=== PATIENT | male | born 1950 | race Caucasian/White ===

== ENCOUNTER → 2017-06-23 | Day surgery (SDC) | payer MEDICARE, OTHER ==
[2017-06-22 10:03] LABS: BASOPHILS % 0.5 % (0.0-1.0); EOSINOPHILS # (AUTO) 0.3 (0.0-0.4); EOSINOPHILS % 2.9 % (0.0-6.0); HEMATOCRIT 39.1 % (38.2-49.6); HEMOGLOBIN 12.6 g/dL (14.0-18.0); LYMPHOCYTES # (AUTO) 1.6 (1.0-3.2); MEAN CORPUSCULAR HEMOGLOBIN 28.8 pg (28-32); MEAN CORPUSCULAR HGB CONC 32.2 g/dL (31-35); MEAN CORPUSCULAR VOLUME 89.3 fL (81-99); MONOCYTES # (AUTO) 0.7 (0.2-0.8); MONOCYTES % 8.4 % (4.4-11.3); NEUTROPHILS # (AUTO) 6.1 (2.1-6.9); NEUTROPHILS % 69.1 % (38.7-80.0); PLATELET COUNT 220 x10e3/uL (140-360); RED BLOOD COUNT 4.38 x10e6/uL (4.3-5.7)
[2017-06-22 10:19] LABS: ALBUMIN 3.7 g/dL (3.5-5.0); ALBUMIN/GLOBULIN RATIO 0.9 (0.8-2.0); ANION GAP 18.4 mmol/L (8-16); CALCIUM 9.9 mg/dL (8.4-10.2); CREATININE, SERUM 1.31 mg/dL (0.72-1.25); POTASSIUM 4.4 mmol/L (3.5-5.1)
[~2017-06-23] VITALS: Ht 172.7 cm; Wt 125.2 kg
[~2017-06-23] MED LIST: ALDACTONE25 MG PO; AMLODIPINE BESY10 MG PO; AMLODIPINE BESYL5 MG PO; ASPIRIN81 MG PO; BENICAR40 MG PO; BYSTOLIC2.5 MG PO; DIGOXIN125 MCG PO; FENTANYL CITRATE/PF 100MCG/2 ML INJ ONE; FUROSEMIDE20 MG; HEPARIN SOD/SOD CHLORIDE 2,000 ML ONE; HYDRALAZINE HCL10 MG PO; IOPAMIDOL 370 MG/ML 200 ML INFUS..BTL INJ ONE; KLOR-CON 88 MEQ PO; LANTUS 3ML100 UNITS/ SQ; LANTUS100 UNITS/ SQ; LASIX40 MG PO; LIDOCAINE HCL 2% LOCAL 20 ML VIAL ONE; METOPROLOL TART50 MG PO; MIDAZOLAM HCL 2 MG/2 ML VIAL ONE; NIFEDICAL XL60 MG PO; PRAVASTATIN SOD40 MG PO; SODIUM CHLORIDE 0.9% 1000ML 1,000 ML ONE; VERAPAMIL HCL 2.5 MG/ML 2 ML VIAL ONE; WARFARIN SODIU7.5 MG PO; WARFARIN SODIUM2 MG PO; eliquis PO
[2017-06-23 07:08] VITALS: BP 161/67
--- NOTE | 2017-06-23 08:28 | Operative Report ---
DATE OF PROCEDURE: June 23, 2017 INDICATIONS: Coronary artery disease and abnormal stress test with unstable angina. PROCEDURES PERFORMED 1. Left heart catheterization. 2. Selective coronary angiography. 3. Left ventriculography. 4. Deployment of right wrist TR band. COMPLICATIONS: None. RECOMMENDATIONS: Medical therapy versus coronary artery bypass surgery. Access was obtained in the right radial artery. A 5-Upper Sorbian sheath was placed. The ultrasound guidance was used. The left main was short. Left anterior descending artery was diffusely diseased proximal 50% to 70% stenosis. Distal LAD 80% stenosis with a 2-mm apical LAD. Circumflex had moderate disease with large 2nd obtuse marginal branch. However, the distal circumflex was occluded. Right coronary artery diffuse disease, mainly 20% to 30% stenosis. This is a dominant. Distal right coronary artery is completely occluded. The right posterior descending and posterolateral arteries filled via left coronary system. LV ejection fraction 50%. LV end-diastolic pressure of 12 mmHg across the aortic valve on pullback. TR band was applied. Patient discharged home same day. Job#: [id number] [place]
--- NOTE | 2017-06-23 08:51 | Progress Note ---
DATE: No Dictation 00:22 seconds. Job#: [id number]
[2017-06-23 09:51] VITALS: BP 136/60
== END | disposition home or self-care (01) ==
LOC: CATH LAB 07:54
PROVIDERS: ATTEND Internal Medicine Interventional Cardiology
DX: I25.110 Atherosclerotic heart disease of native coronary artery with unstable angina pectoris (principal); I25.82 Chronic total occlusion of coronary artery; R94.39 Abnormal result of other cardiovascular function study; I11.0 Hypertensive heart disease with heart failure; I50.9 Heart failure, unspecified; E11.9 Type 2 diabetes mellitus without complications; Z01.812 Encounter for preprocedural laboratory examination; Z79.4 Long term (current) use of insulin; Z79.82 Long term (current) use of aspirin; Z79.02 Long term (current) use of antithrombotics/antiplatelets; Z68.36 Body mass index [BMI] 36.0-36.9, adult; Z82.49 Family history of ischemic heart disease and other diseases of the circulatory system
CPT/HCPCS: 36415; 77002; 80053; 85025; 93458; C1769; C1887; C1894; J2001; J2250; J7030; Q9967; 36140; 93452

== ENCOUNTER → 2020-06-29 | Day surgery (SDC) | payer MEDICARE, OTHER ==
[2020-06-24 11:47] LABS: BASOPHILS % 0.4 % (0.0-1.0); EOSINOPHILS # (AUTO) 0.5 (0.0-0.4); EOSINOPHILS % 4.8 % (0.0-6.0); LYMPHOCYTES # (AUTO) 1.9 (1.0-3.2); LYMPHOCYTES % 19.1 % (18.0-39.1); MEAN CORPUSCULAR HGB CONC 31.4 g/dL (31-35); MEAN CORPUSCULAR VOLUME 85.8 fL (81-99); MONOCYTES # (AUTO) 0.9 (0.2-0.8); NEUTROPHILS # (AUTO) 6.6 (2.1-6.9); NEUTROPHILS % 66.3 % (38.7-80.0); PLATELET COUNT 241 x10e3/uL (140-360); RED BLOOD COUNT 4.08 x10e6/uL (4.3-5.7); RED CELL DISTRIBUTION WIDTH 15.3 % (11.7-14.4)
[2020-06-24 14:05] LABS: ALBUMIN 3.8 g/dL (3.5-5.0); ANION GAP 13.2 mmol/L (8-16); CALCIUM 9.2 mg/dL (8.4-10.2); CREATININE, SERUM 1.3 mg/dL (0.72-1.25); POTASSIUM 4.2 mmol/L (3.5-5.1)
[~2020-06-29] VITALS: Ht 175.3 cm; Wt 111.1 kg
[~2020-06-29] MED LIST changes: +ALPRAZOLAM 0.5 MG TAB ONE; +ASPIRIN EC81 MG PO; +DIPHENHYDRAMINE HCL 25 MG CAP ONE; +ELIQUIS5 MG PO; +LASIX80 MG PO; +METOPROLOL SUCC25 MG PO; +NITROGLYCERIN/D5W 200 MCG/ML 250 ML ONE; -VERAPAMIL HCL 2.5 MG/ML 2 ML VIAL ONE
[2020-06-29 07:01] VITALS: BP 138/70
[2020-06-29 08:15] VITALS: BP 107/60
[2020-06-29 08:30] VITALS: BP 104/50
[2020-06-29 08:44] VITALS: BP 97/37
[2020-06-29 09:00] VITALS: BP 122/59
== END | disposition home or self-care (01) ==
LOC: CATH LAB 06:19
PROVIDERS: ATTEND Internal Medicine Interventional Cardiology
DX: I25.118 Atherosclerotic heart disease of native coronary artery with other forms of angina pectoris (principal); I82.493 Acute embolism and thrombosis of other specified deep vein of lower extremity, bilateral; R94.39 Abnormal result of other cardiovascular function study; I73.9 Peripheral vascular disease, unspecified; Z13.6 Encounter for screening for cardiovascular disorders; I10 Essential (primary) hypertension; Z01.812 Encounter for preprocedural laboratory examination; Z20.828 Contact with and (suspected) exposure to other viral communicable diseases; Z79.82 Long term (current) use of aspirin; Z79.02 Long term (current) use of antithrombotics/antiplatelets; Z68.37 Body mass index [BMI] 37.0-37.9, adult; Z82.49 Family history of ischemic heart disease and other diseases of the circulatory system
CPT/HCPCS: 36415; 80053; 85025; 93458; C1760; C1769; J2001; J2250; J3010; J7030; Q9967; U0002; 99152; 99153

== ENCOUNTER 2021-12-22 12:20 | Emergency (ER) | payer MEDICARE, OTHER ==
[~2021-12-22] VITALS: Ht 175.3 cm; Wt 111.1 kg
[~2021-12-22 12:20] MED LIST changes: -ALPRAZOLAM 0.5 MG TAB ONE; -DIPHENHYDRAMINE HCL 25 MG CAP ONE; -FENTANYL CITRATE/PF 100MCG/2 ML INJ ONE; -HEPARIN SOD/SOD CHLORIDE 2,000 ML ONE; -IOPAMIDOL 370 MG/ML 200 ML INFUS..BTL INJ ONE; -LIDOCAINE HCL 2% LOCAL 20 ML VIAL ONE; -MIDAZOLAM HCL 2 MG/2 ML VIAL ONE; -NITROGLYCERIN/D5W 200 MCG/ML 250 ML ONE; -SODIUM CHLORIDE 0.9% 1000ML 1,000 ML ONE
[2021-12-22 13:02] LABS: BASOPHILS % 0.3 % (0.0-1.0); EOSINOPHILS # (AUTO) 0.2 (0.0-0.4); EOSINOPHILS % 2.3 % (0.0-6.0); HEMATOCRIT 25.8 % (38.2-49.6); HEMOGLOBIN 7.2 g/dL (14.0-18.0); LYMPHOCYTES # (AUTO) 1.7 (1.0-3.2); LYMPHOCYTES % 16.9 % (18.0-39.1); MEAN CORPUSCULAR HEMOGLOBIN 20.2 pg (28-32); MEAN CORPUSCULAR HGB CONC 27.9 g/dL (31-35); MEAN CORPUSCULAR VOLUME 72.3 fL (81-99); MONOCYTES # (AUTO) 0.6 (0.2-0.8); MONOCYTES % 5.6 % (4.4-11.3); NEUTROPHILS # (AUTO) 7.4 (2.1-6.9); NEUTROPHILS % 74.4 % (38.7-80.0); PLATELET COUNT 333 x10e3/uL (140-360); RED BLOOD COUNT 3.57 x10e6/uL (4.3-5.7); RED CELL DISTRIBUTION WIDTH 18.8 % (11.7-14.4)
[2021-12-22 13:10] LABS: INR 1.05; PROTHROMBIN TIME 14.7 seconds (11.9-14.5)
[2021-12-22 13:14] LABS: ALBUMIN 2.5 g/dL (3.5-5.0); ALBUMIN/GLOBULIN RATIO 0.6 (0.8-2.0); ALKALINE PHOSPHATASE 68 IU/L (40-150); ANION GAP 12.5 mmol/L (8-16); BLOOD UREA NITROGEN 14 mg/dL (7-26); BUN/CREATININE RATIO 11 (6-25); CALCIUM 8.1 mg/dL (8.4-10.2); CARBON DIOXIDE 26 mmol/L (22-29); CHLORIDE 101 mmol/L (98-107); CREATININE, SERUM 1.31 mg/dL (0.72-1.25); GLUCOSE 144 mg/dL (74-118); POTASSIUM 3.5 mmol/L (3.5-5.1); SODIUM 136 mmol/L (136-145)
[2021-12-22 13:15] LABS: ALANINE AMINOTRANSFERASE < 6 IU/L (0-55)
== END 2021-12-22 14:30 | disposition home or self-care (01) ==
LOC: ER 12:25
DX: D64.9 Anemia, unspecified (principal); E11.65 Type 2 diabetes mellitus with hyperglycemia; I10 Essential (primary) hypertension; I50.9 Heart failure, unspecified
CPT/HCPCS: 36415; 80053; 83880; 84484; 85025; 85610; 86850; 86900; 99283

== ENCOUNTER 2022-01-03 15:18 | Observation (INO) | payer MEDICARE ==
[~2022-01-03] VITALS: Ht 175.3 cm; Wt 102.1 kg
[~2022-01-03 15:18] MED LIST changes: +CYANOCOBALAMIN PO; +D3 PO; +IRON PO; +ZINC PO
[2022-01-03] MEDS ORDERED: SODIUM CHLORIDE 0.9% 250ML 250 ML IV ONE ×2 (15:45→16:00)
[2022-01-03] MEDS ORDERED: SODIUM CHLORIDE FLUSH 10 ML SYR INJ PRN (16:15)
[2022-01-03 18:32] VITALS: BP 127/50
[2022-01-03 19:34] VITALS: BP 146/63
[2022-01-03 19:50] VITALS: BP 146/63
[2022-01-03 20:00] VITALS: BP 146/63
[2022-01-03] MEDS ORDERED: FUROSEMIDE INJ 10 MG/ML 2 ML VIAL IV PRN (20:00)
[2022-01-03] MEDS ORDERED: FUROSEMIDE INJ 10 MG/ML 2 ML VIAL IV ONE (20:00)
[2022-01-03] MEDS ORDERED: SODIUM CHLORIDE 0.9% 250ML 500 ML ONE (20:14)
[2022-01-03 21:28] LABS: FERRITIN 68.02 ng/mL (21.81-274.66); THYROID STIMULATING HORMONE 1.618 uIU/mL (0.350-4.940)
[2022-01-04] VITALS (8 sets, daily range): BP systolic 117–150; BP diastolic 56–74
[2022-01-04] MEDS ORDERED: FUROSEMIDE INJ 10 MG/ML 2 ML VIAL ONE ×2 (00:04→03:50)
[2022-01-04] MEDS ORDERED: BISACODYL 5 MG TAB EC PO ONE ×2 (05:00→07:00)
[2022-01-04 06:01] LABS: BASOPHILS % 0.2 % (0.0-1.0); EOSINOPHILS # (AUTO) 0.2 (0.0-0.4); EOSINOPHILS % 1.2 % (0.0-6.0); HEMATOCRIT 31.5 % (38.2-49.6); HEMOGLOBIN 9.3 g/dL (14.0-18.0); LYMPHOCYTES # (AUTO) 2.1 (1.0-3.2); LYMPHOCYTES % 16.3 % (18.0-39.1); MEAN CORPUSCULAR HEMOGLOBIN 21.8 pg (28-32); MEAN CORPUSCULAR HGB CONC 29.5 g/dL (31-35); MEAN CORPUSCULAR VOLUME 73.9 fL (81-99); MONOCYTES # (AUTO) 0.9 (0.2-0.8); MONOCYTES % 7.3 % (4.4-11.3); NEUTROPHILS # (AUTO) 9.5 (2.1-6.9); NEUTROPHILS % 74.2 % (38.7-80.0); PLATELET COUNT 378 x10e3/uL (140-360); RED BLOOD COUNT 4.26 x10e6/uL (4.3-5.7); RED CELL DISTRIBUTION WIDTH 20.7 % (11.7-14.4)
[2022-01-04 06:19] LABS: ANION GAP 14.9 mmol/L (8-16); CALCIUM 8.7 mg/dL (8.4-10.2); CREATININE, SERUM 0.97 mg/dL (0.72-1.25); POTASSIUM 3.9 mmol/L (3.5-5.1)
[2022-01-04 08:45] LABS: ANISOCYTOSIS MODERATE; HYPOCHROMASIA MODERATE; MICROCYTOSIS MODERATE; OVALOCYTES FEW; PLATELET ESTIMATE ADEQUATE; PLATELET MORPHOLOGY COMMENT NORMAL; RBC MORPHOLOGY COMMENT ABNORMAL
[2022-01-04] MEDS: IRON SUCROSE 100 MG in SODIUM CHLORIDE 0.9% 100 ML 100 ML IV SCH (08:56)
[2022-01-04] MEDS ORDERED: CITRATE OF MAGNESIA 300ML BOTTLE PO ONE ×2 (09:00→10:00)
[2022-01-04] MEDS ORDERED: LIDOCAINE HCL 2% LOCAL INJ 5 ML SDV VIAL INJ ONE (11:38)
[2022-01-04] MEDS ORDERED: PROPOFOL IV EMULSION 10 MG/ML 20 ML VIAL ONE (11:38)
[2022-01-04] MEDS ORDERED: HYOSCYAMINE SULFATE 0.5 MG/ML INJ ONE (11:38)
[2022-01-04] MEDS ORDERED: MIDAZOLAM HCL 2 MG/2 ML VIAL ONE (13:13)
[2022-01-04] MEDS ORDERED: FENTANYL CITRATE/PF 100MCG/2 ML INJ ONE (13:13)
[2022-01-04] MEDS ORDERED: DIGOXIN125 MCG PO (15:30)
[2022-01-04] MEDS ORDERED: ATORVASTATIN CA20 MG PO (15:30)
[2022-01-04] MEDS ORDERED: HYDRALAZINE HCL 10 MG TAB PO SCH (17:00)
[2022-01-04] MEDS: APIXABAN 5 MG TABLET PO SCH (17:00)
[2022-01-04] MEDS: SPIRONOLACTONE 25 MG TAB PO SCH (18:26)
[2022-01-04] MEDS ORDERED: ATORVASTATIN 40 MG TAB PO SCH (21:00)
[2022-01-05] VITALS: BP 117/64
[2022-01-05 04:31] VITALS: BP 129/74
[2022-01-05 06:13] LABS: BASOPHILS % 0.2 % (0.0-1.0); EOSINOPHILS % 0.3 % (0.0-6.0); HEMATOCRIT 33.9 % (38.2-49.6); HEMOGLOBIN 9.8 g/dL (14.0-18.0); LYMPHOCYTES # (AUTO) 1.2 (1.0-3.2); LYMPHOCYTES % 7.6 % (18.0-39.1); MEAN CORPUSCULAR HGB CONC 28.9 g/dL (31-35); MEAN CORPUSCULAR VOLUME 76.2 fL (81-99); MONOCYTES # (AUTO) 0.8 (0.2-0.8); MONOCYTES % 5.1 % (4.4-11.3); NEUTROPHILS # (AUTO) 13.2 (2.1-6.9); PLATELET COUNT 351 x10e3/uL (140-360); RED BLOOD COUNT 4.45 x10e6/uL (4.3-5.7); RED CELL DISTRIBUTION WIDTH 20.8 % (11.7-14.4)
[2022-01-05 06:42] LABS: ANION GAP 14.8 mmol/L (8-16); CALCIUM 8.8 mg/dL (8.4-10.2); CREATININE, SERUM 1.08 mg/dL (0.72-1.25); POTASSIUM 3.8 mmol/L (3.5-5.1)
[2022-01-05 08:16] VITALS: BP 102/68
[2022-01-05 08:20] VITALS: BP 102/68
[2022-01-05] MEDS: APIXABAN 5 MG TABLET PO SCH (08:23)
[2022-01-05] MEDS: SPIRONOLACTONE 25 MG TAB PO SCH (08:23)
[2022-01-05] MEDS ORDERED: AMLODIPINE BESYLATE 10 MG TAB PO SCH (09:00)
[2022-01-05] MEDS ORDERED: INSULIN GLARGINE 100 UNITS/ML VIAL SQ SCH (09:00)
[2022-01-05] MEDS ORDERED: ZINC PO SCH (09:00)
[2022-01-05] MEDS ORDERED: NON-FORMULARY MEDICATION (Olmesartan Medoxomil (Benicar) 40 MG) PO SCH (09:00)
[2022-01-05] MEDS ORDERED: NON-FORMULARY MEDICATION ([Iron] 65 MG) PO SCH (09:00)
[2022-01-05] MEDS ORDERED: CYANOCOBALAMIN PO SCH (09:00)
[2022-01-05] MEDS ORDERED: DIGOXIN 0.125 MG TAB PO SCH (09:00)
[2022-01-05] MEDS ORDERED: D3 PO SCH (09:00)
[2022-01-05] MEDS ORDERED: FERROUS SULFATE 325 MG TAB PO SCH (09:00)
[2022-01-05] MEDS ORDERED: NON-FORMULARY MEDICATION (Pravastatin Sodium 40 MG) PO SCH (09:00)
[2022-01-05] MEDS ORDERED: METOPROLOL SUCCINATE 25 MG TAB XL PO SCH (09:00)
[2022-01-05] MEDS ORDERED: ASPIRIN 81 MG ENTERIC COATED PO SCH (09:00)
[2022-01-05] MEDS ORDERED: OLMESARTAN 20 MG TAB PO SCH (09:00)
[2022-01-05] MEDS ORDERED: PRAVASTATIN 20 MG TAB PO SCH (09:00)
[2022-01-05] MEDS ORDERED: FUROSEMIDE 40 MG TAB PO SCH (09:00)
[2022-01-05] MEDS ORDERED: CHOLECALCIFEROL 1,000 UNIT TAB PO SCH (09:00)
[2022-01-05] MEDS: IRON SUCROSE 100 MG in SODIUM CHLORIDE 0.9% 100 ML 100 ML IV SCH (09:11)
[2022-01-05 09:18] LABS: BAND NEUTROPHILS % (MANUAL) 2 %; LYMPHOCYTES % (MANUAL) 7 % (19-48); MONOCYTES % (MANUAL) 4 % (3.4-9.0); NEUTROPHILS % (MANUAL) 87 % (40-74)
[2022-01-05 09:19] LABS: ANISOCYTOSIS MODERATE; HYPOCHROMASIA MODERATE; MICROCYTOSIS MODERATE; PLATELET ESTIMATE ADEQUATE; PLATELET MORPHOLOGY COMMENT NORMAL; RBC MORPHOLOGY COMMENT ABNORMAL
[2022-01-05 10:46] VITALS: BP 121/59
== END 2022-01-05 15:03 | disposition home or self-care (01) ==
LOC: ER 15:26 → INTOOBSV 16:10 → ERHOLD 16:10 → MED/SURG 17:29
DX: D12.3 Benign neoplasm of transverse colon (principal); D12.2 Benign neoplasm of ascending colon; D12.0 Benign neoplasm of cecum; K29.50 Unspecified chronic gastritis without bleeding; K57.30 Diverticulosis of large intestine without perforation or abscess without bleeding; K64.8 Other hemorrhoids; K20.90 Esophagitis, unspecified without bleeding; K44.9 Diaphragmatic hernia without obstruction or gangrene; D64.9 Anemia, unspecified; E66.9 Obesity, unspecified; Z68.33 Body mass index [BMI] 33.0-33.9, adult; I11.0 Hypertensive heart disease with heart failure; E11.9 Type 2 diabetes mellitus without complications; I50.22 Chronic systolic (congestive) heart failure; B96.81 Helicobacter pylori [H. pylori] as the cause of diseases classified elsewhere; Z20.822 Contact with and (suspected) exposure to COVID-19; Z79.82 Long term (current) use of aspirin; Z79.4 Long term (current) use of insulin
CPT/HCPCS: 36415 ×3; 36430; 43239; 45380; 45385; 80048 ×2; 82607; 82728; 82746; 82948 ×3; 83540; 84443; 84466; 85025 ×2; 86850; 86900; 86920; 88305; 88342; 99284; G0378 ×3; J1756 ×2; J1940; J1980; J2001; J2250; J2704; J3010; J7050; P9016 ×2; U0002; 45378; 88312; J1815

== ENCOUNTER 2022-02-07 10:31 | Inpatient (IN) | payer MEDICARE ==
[2022-02-02 13:34] LABS: BASOPHILS % 0.3 % (0.0-1.0); EOSINOPHILS # (AUTO) 0.1 (0.0-0.4); EOSINOPHILS % 1.3 % (0.0-6.0); HEMATOCRIT 30.8 % (38.2-49.6); HEMOGLOBIN 9.4 g/dL (14.0-18.0); LYMPHOCYTES # (AUTO) 1.4 (1.0-3.2); LYMPHOCYTES % 13.2 % (18.0-39.1); MEAN CORPUSCULAR HEMOGLOBIN 23.7 pg (28-32); MEAN CORPUSCULAR HGB CONC 30.5 g/dL (31-35); MEAN CORPUSCULAR VOLUME 77.8 fL (81-99); MONOCYTES # (AUTO) 0.7 (0.2-0.8); MONOCYTES % 6.6 % (4.4-11.3); NEUTROPHILS # (AUTO) 8.1 (2.1-6.9); NEUTROPHILS % 78.1 % (38.7-80.0); PLATELET COUNT 266 x10e3/uL (140-360); RED BLOOD COUNT 3.96 x10e6/uL (4.3-5.7); RED CELL DISTRIBUTION WIDTH 23.8 % (11.7-14.4)
[~2022-02-07] VITALS: Ht 175.3 cm; Wt 100.8 kg
[2022-02-07] VITALS (7 sets, daily range): BP systolic 138–157; BP diastolic 84–104
[~2022-02-07 10:31] MED LIST changes: +ATORVASTATIN CA20 MG PO; +FEROSUL325 MG PO
[2022-02-07] MEDS ORDERED: SEVOFLURANE INHAL SOLN 250 ML PEN BTL ONE (11:53)
[2022-02-07] MEDS ORDERED: DEXAMETHASONE SOD PHOS INJ 4 MG/ML SDV ONE (11:53)
[2022-02-07] MEDS ORDERED: LIDOCAINE HCL 2% LOCAL INJ 5 ML SDV VIAL INJ ONE (11:53)
[2022-02-07] MEDS ORDERED: PROPOFOL IV EMULSION 10 MG/ML 20 ML VIAL ONE (11:53)
[2022-02-07] MEDS ORDERED: POVIDONE IODINE 0.05% 0.05 % ML PO ONE (11:53)
[2022-02-07] MEDS ORDERED: ROCURONIUM BROMIDE 10 MG/ML 5ML VIAL IV ONE (11:53)
[2022-02-07] MEDS ORDERED: ONDANSETRON HCL INJ 2MG/ML 2ML 2 MG/ML VIAL ONE (11:53)
[2022-02-07] MEDS ORDERED: MIDAZOLAM HCL 2 MG/2 ML VIAL ONE (12:15)
[2022-02-07] MEDS ORDERED: FENTANYL CITRATE/PF 100MCG/2 ML INJ ONE (12:15)
[2022-02-07] MEDS ORDERED: HEPARIN SOD/SOD CHLORIDE 1,000 ML ONE (14:05)
[2022-02-07] MEDS ORDERED: ACETAMINOPHEN 1000 MG/100 ML 100 ML IV ONE (15:17)
[2022-02-07] MEDS ORDERED: ACETAMINOPHEN 1000 MG/100 ML IV PRN (15:30)
[2022-02-07] MEDS ORDERED: HYDROMORPHONE 1MG/1ML INJ IV PRN (15:30)
[2022-02-07] MEDS ORDERED: ONDANSETRON HCL INJ 2MG/ML 2ML 2 MG/ML VIAL IV PRN (15:30)
[2022-02-07] MEDS: METOPROLOL SUCCINATE 25 MG TAB XL PO SCH (17:59)
[2022-02-07] MEDS: SODIUM CHLORIDE 0.9% 1000ML 1,000 ML IV SCH (17:59)
[2022-02-07] MEDS: NITROGLYCERIN 2% OINT 1 GM PKT TOP SCH ×2 (17:59→23:40)
[2022-02-07] MEDS: INSULIN REGULAR, HUMAN 100 UNIT/1 ML SQ SCH ×2 (18:00→23:49)
[2022-02-08] VITALS (17 sets, daily range): BP systolic 130–162; BP diastolic 67–95
[2022-02-08] MEDS: SODIUM CHLORIDE 0.9% 1000ML 1,000 ML IV SCH ×3 (03:10→23:51)
[2022-02-08] MEDS: INSULIN REGULAR, HUMAN 100 UNIT/1 ML SQ SCH ×3 (06:00→18:00)
[2022-02-08] MEDS: NITROGLYCERIN 2% OINT 1 GM PKT TOP SCH ×4 (06:06→23:55)
[2022-02-08 06:18] LABS: HEMATOCRIT 29.9 % (38.2-49.6); HEMOGLOBIN 9.1 g/dL (14.0-18.0); MEAN CORPUSCULAR HEMOGLOBIN 24.3 pg (28-32); MEAN CORPUSCULAR HGB CONC 30.4 g/dL (31-35); MEAN CORPUSCULAR VOLUME 79.7 fL (81-99); NEUTROPHILS % 89.7 % (38.7-80.0); PLATELET COUNT 237 x10e3/uL (140-360); RED BLOOD COUNT 3.75 x10e6/uL (4.3-5.7); RED CELL DISTRIBUTION WIDTH 22.5 % (11.7-14.4)
[2022-02-08 06:19] LABS: LYMPHOCYTES # (AUTO) 0.5 (1.0-3.2); LYMPHOCYTES % 5.6 % (18.0-39.1); MONOCYTES # (AUTO) 0.4 (0.2-0.8); MONOCYTES % 4.4 % (4.4-11.3); NEUTROPHILS # (AUTO) 8.7 (2.1-6.9)
[2022-02-08 06:47] LABS: ANION GAP 14.8 mmol/L (8-16); CALCIUM 7.6 mg/dL (8.4-10.2); CREATININE, SERUM 1.14 mg/dL (0.72-1.25); POTASSIUM 4.8 mmol/L (3.5-5.1)
[2022-02-08] MEDS: METOPROLOL SUCCINATE 25 MG TAB XL PO SCH ×3 (09:00→19:46)
[2022-02-08] MEDS: FUROSEMIDE INJ 10 MG/ML 2 ML VIAL IV SCH ×2 (12:38→18:26)
[2022-02-08] MEDS: DIGOXIN INJ 0.25 MG/ML 2 ML AMP IV SCH (12:38)
[2022-02-09] VITALS (7 sets, daily range): BP systolic 126–165; BP diastolic 67–85
[2022-02-09] MEDS: INSULIN REGULAR, HUMAN 100 UNIT/1 ML SQ SCH ×4 (05:56→18:00)
[2022-02-09] MEDS: NITROGLYCERIN 2% OINT 1 GM PKT TOP SCH ×3 (06:09→17:32)
[2022-02-09 07:32] LABS: BASOPHILS % 0.1 % (0.0-1.0); HEMATOCRIT 31.2 % (38.2-49.6); HEMOGLOBIN 9.5 g/dL (14.0-18.0); MEAN CORPUSCULAR HEMOGLOBIN 24.4 pg (28-32); MEAN CORPUSCULAR HGB CONC 30.4 g/dL (31-35); MONOCYTES # (AUTO) 1.1 (0.2-0.8); MONOCYTES % 8.4 % (4.4-11.3); NEUTROPHILS # (AUTO) 10.7 (2.1-6.9); PLATELET COUNT 254 x10e3/uL (140-360); RED CELL DISTRIBUTION WIDTH 23.2 % (11.7-14.4)
[2022-02-09 07:56] LABS: ANION GAP 12.2 mmol/L (8-16); CALCIUM 8.2 mg/dL (8.4-10.2); CREATININE, SERUM 1.05 mg/dL (0.72-1.25); POTASSIUM 4.2 mmol/L (3.5-5.1)
[2022-02-09] MEDS: SODIUM CHLORIDE 0.9% 1000ML 1,000 ML IV SCH (10:19)
[2022-02-09] MEDS: METOPROLOL SUCCINATE 25 MG TAB XL PO SCH ×2 (10:20→17:30)
[2022-02-09] MEDS: FUROSEMIDE INJ 10 MG/ML 2 ML VIAL IV SCH ×2 (10:26→17:29)
[2022-02-09] MEDS: DIGOXIN INJ 0.25 MG/ML 2 ML AMP IV SCH (10:26)
[2022-02-10] VITALS (9 sets, daily range): BP systolic 142–164; BP diastolic 77–83
[2022-02-10] MEDS: NITROGLYCERIN 2% OINT 1 GM PKT TOP SCH ×4 (00:28→17:15)
[2022-02-10] MEDS: SODIUM CHLORIDE 0.9% 1000ML 1,000 ML IV SCH ×2 (03:34→16:50)
[2022-02-10] MEDS: INSULIN REGULAR, HUMAN 100 UNIT/1 ML SQ SCH ×4 (05:51→17:11)
[2022-02-10 09:24] LABS: BASOPHILS % 0.2 % (0.0-1.0); EOSINOPHILS # (AUTO) 0.1 (0.0-0.4); EOSINOPHILS % 0.6 % (0.0-6.0); HEMATOCRIT 30.9 % (38.2-49.6); HEMOGLOBIN 9.4 g/dL (14.0-18.0); LYMPHOCYTES # (AUTO) 1.5 (1.0-3.2); LYMPHOCYTES % 13.4 % (18.0-39.1); MEAN CORPUSCULAR HEMOGLOBIN 24.2 pg (28-32); MEAN CORPUSCULAR HGB CONC 30.4 g/dL (31-35); MEAN CORPUSCULAR VOLUME 79.6 fL (81-99); MONOCYTES # (AUTO) 0.9 (0.2-0.8); NEUTROPHILS # (AUTO) 8.4 (2.1-6.9); NEUTROPHILS % 77.2 % (38.7-80.0); PLATELET COUNT 270 x10e3/uL (140-360); RED BLOOD COUNT 3.88 x10e6/uL (4.3-5.7); RED CELL DISTRIBUTION WIDTH 22.8 % (11.7-14.4)
[2022-02-10] MEDS: DIGOXIN INJ 0.25 MG/ML 2 ML AMP IV SCH (09:24)
[2022-02-10] MEDS: METOPROLOL SUCCINATE 25 MG TAB XL PO SCH ×2 (09:26→17:10)
[2022-02-10] MEDS: FUROSEMIDE INJ 10 MG/ML 4 ML VIAL IV SCH ×2 (09:26→17:10)
[2022-02-10 09:57] LABS: ANION GAP 14.7 mmol/L (8-16); CALCIUM 8.2 mg/dL (8.4-10.2); CREATININE, SERUM 0.86 mg/dL (0.72-1.25); POTASSIUM 3.7 mmol/L (3.5-5.1)
[2022-02-10] MEDS ORDERED: ATORVASTATIN 40 MG TAB PO SCH (21:00)
[2022-02-10] MEDS: SPIRONOLACTONE 25 MG TAB PO SCH (21:05)
[2022-02-11] MEDS: NITROGLYCERIN 2% OINT 1 GM PKT TOP SCH ×4 (00:27→17:01)
[2022-02-11 05:45] VITALS: BP 128/79
[2022-02-11] MEDS: INSULIN REGULAR, HUMAN 100 UNIT/1 ML SQ SCH ×3 (05:51→12:00)
[2022-02-11 07:39] VITALS: BP 144/84
[2022-02-11 08:00] VITALS: BP 144/84
[2022-02-11] MEDS: FUROSEMIDE INJ 10 MG/ML 4 ML VIAL IV SCH ×2 (08:57→16:54)
[2022-02-11] MEDS: DIGOXIN INJ 0.25 MG/ML 2 ML AMP IV SCH (08:57)
[2022-02-11] MEDS: SPIRONOLACTONE 25 MG TAB PO SCH ×2 (08:58→16:55)
[2022-02-11] MEDS: METOPROLOL SUCCINATE 25 MG TAB XL PO SCH ×2 (08:58→16:55)
[2022-02-11] MEDS ORDERED: OLMESARTAN 20 MG TAB PO SCH (09:00)
[2022-02-11 11:08] VITALS: BP 147/72
[2022-02-11] MEDS: SODIUM CHLORIDE 0.9% 1000ML 1,000 ML IV SCH (11:52)
[2022-02-11 15:07] VITALS: BP 139/96
[2022-02-11] MEDS ORDERED: ONDANSETRON HCL 4 MG ORAL DISINTEGRATING TAB PO PRN (17:45)
[2022-02-12] MEDS ORDERED: PANTOPRAZOLE SOD 40 MG TABEC PO SCH (07:30)
[2022-02-12] MEDS ORDERED: FUROSEMIDE 40 MG TAB PO SCH (09:00)
== END 2022-02-11 18:18 | disposition home or self-care (01) | DRG 330 ==
LOC: OR 10:31 → PACU V 15:29 → ICU 17:16 → MED/SURG 02-08 21:04
PROVIDERS: ADMIT Surgery; ATTEND Surgery
PROC: 0DTF0ZZ Resection of Right Large Intestine, Open Approach (ICD-10-PCS; principal; 2022-02-07 13:41)
DX: D12.3 Benign neoplasm of transverse colon (principal); I50.22 Chronic systolic (congestive) heart failure; D12.0 Benign neoplasm of cecum; I48.91 Unspecified atrial fibrillation; I11.0 Hypertensive heart disease with heart failure; I25.10 Atherosclerotic heart disease of native coronary artery without angina pectoris; E78.5 Hyperlipidemia, unspecified; E11.9 Type 2 diabetes mellitus without complications; Z20.822 Contact with and (suspected) exposure to COVID-19
CPT/HCPCS: 0223U; 36415; 71046; 80048; 82948; 83880; 85025; 88307; 88309; 94799; 96361; 99251; J0694; J1100; J1160; J1170; J1817; J1940; J2001; J2250; J2405; J3010; J7030

== ENCOUNTER → 2022-03-01 | Day surgery (SDC) | payer MEDICARE ==
[2022-02-28 13:29] LABS: BASOPHILS % 0.3 % (0.0-1.0); EOSINOPHILS # (AUTO) 0.1 (0.0-0.4); EOSINOPHILS % 0.8 % (0.0-6.0); HEMATOCRIT 32.6 % (38.2-49.6); LYMPHOCYTES # (AUTO) 1.5 (1.0-3.2); LYMPHOCYTES % 13.2 % (18.0-39.1); MEAN CORPUSCULAR HEMOGLOBIN 24.7 pg (28-32); MEAN CORPUSCULAR HGB CONC 30.7 g/dL (31-35); MEAN CORPUSCULAR VOLUME 80.5 fL (81-99); MONOCYTES # (AUTO) 0.8 (0.2-0.8); MONOCYTES % 6.6 % (4.4-11.3); NEUTROPHILS # (AUTO) 8.9 (2.1-6.9); NEUTROPHILS % 78.3 % (38.7-80.0); PLATELET COUNT 279 x10e3/uL (140-360); RED BLOOD COUNT 4.05 x10e6/uL (4.3-5.7); RED CELL DISTRIBUTION WIDTH 21.6 % (11.7-14.4)
[2022-02-28 13:49] LABS: ALBUMIN/GLOBULIN RATIO 0.7 (0.8-2.0); ANION GAP 15.3 mmol/L (8-16); CREATININE, SERUM 1.72 mg/dL (0.72-1.25); POTASSIUM 4.3 mmol/L (3.5-5.1)
[2022-03-01] VITALS (8 sets, daily range): BP systolic 78–148; BP diastolic 29–90
[~2022-03-01] MED LIST changes: +AMIODARONE HCL 100 ML IV ONE; +BENZOCAINE 20% SPR 60 ML CAN ONE; +FENTANYL CITRATE/PF 100MCG/2 ML INJ ONE; +MIDAZOLAM HCL 2 MG/2 ML VIAL ONE; +SODIUM CHLORIDE 0.9% 1000ML 1,000 ML ONE
== END | disposition home or self-care (01) ==
LOC: CATH LAB 10:09 → EDSTATUS 12:00
PROVIDERS: ATTEND Internal Medicine Interventional Cardiology
DX: I48.91 Unspecified atrial fibrillation (principal); I25.10 Atherosclerotic heart disease of native coronary artery without angina pectoris; I11.0 Hypertensive heart disease with heart failure; I50.9 Heart failure, unspecified; E78.2 Mixed hyperlipidemia; E11.9 Type 2 diabetes mellitus without complications; Z01.812 Encounter for preprocedural laboratory examination; Z20.822 Contact with and (suspected) exposure to COVID-19; Z79.82 Long term (current) use of aspirin; Z79.4 Long term (current) use of insulin; Z79.899 Other long term (current) drug therapy; Z68.31 Body mass index [BMI] 31.0-31.9, adult; Z82.49 Family history of ischemic heart disease and other diseases of the circulatory system
CPT/HCPCS: 92960; C8925; 0223U; 36415; 80053; 85025; 93005; 93307; 93312; 93320; 93325; 93355; 99152; 99153; J2250; J3010; J7030

== ENCOUNTER → 2022-05-17 | Outpatient (CLI) | payer SELFPAY ==
[~2022-05-17] MED LIST changes: -AMIODARONE HCL 100 ML IV ONE; -BENZOCAINE 20% SPR 60 ML CAN ONE; -FENTANYL CITRATE/PF 100MCG/2 ML INJ ONE; +IOPAMIDOL 370 MG/ML 100 ML INFUS..BTL INJ ONE; -MIDAZOLAM HCL 2 MG/2 ML VIAL ONE; +SODIUM CHLORIDE 0.9% 100 ML ONE; -SODIUM CHLORIDE 0.9% 1000ML 1,000 ML ONE; +SODIUM CHLORIDE 0.9% 500ML 500 ML ONE
[2022-05-17 13:47] LABS: CREATININE, SERUM 1.7 mg/dL (0.72-1.25)
== END ==
LOC: CT 12:36
PROVIDERS: ATTEND Internal Medicine Interventional Cardiology
DX: R07.9 Chest pain, unspecified (principal); I48.91 Unspecified atrial fibrillation; I25.10 Atherosclerotic heart disease of native coronary artery without angina pectoris; I28.8 Other diseases of pulmonary vessels
CPT/HCPCS: 36415; 71275; 82565; 84520; 96360; J7040; J7050; Q9967

== ENCOUNTER 2024-08-23 16:15 | Inpatient (IN) | payer MEDICARE ==
[~2024-08-23] VITALS: Ht 175.3 cm; Wt 100.7 kg
[~2024-08-23 16:15] MED LIST changes: -IOPAMIDOL 370 MG/ML 100 ML INFUS..BTL INJ ONE; -SODIUM CHLORIDE 0.9% 100 ML ONE; -SODIUM CHLORIDE 0.9% 500ML 500 ML ONE
[2024-08-23 18:26] LABS: BASOPHILS % 0.1 % (0.0-1.0); HEMATOCRIT 24.4 % (38.2-49.6); HEMOGLOBIN 7.7 g/dL (14.0-18.0); LYMPHOCYTES # (AUTO) 0.5 (1.0-3.2); LYMPHOCYTES % 2.2 % (18.0-39.1); MEAN CORPUSCULAR HEMOGLOBIN 29.1 pg (28-32); MEAN CORPUSCULAR HGB CONC 31.6 g/dL (31-35); MEAN CORPUSCULAR VOLUME 92.1 fL (81-99); MONOCYTES # (AUTO) 1.5 (0.2-0.8); MONOCYTES % 6.8 % (4.4-11.3); NEUTROPHILS # (AUTO) 19.9 (2.1-6.9); PLATELET COUNT 271 x10e3/uL (140-360); RED BLOOD COUNT 2.65 x10e6/uL (4.3-5.7); RED CELL DISTRIBUTION WIDTH 14.3 % (11.7-14.4); WHITE BLOOD COUNT 22.16 x10e3/uL (4.8-10.8)
[2024-08-23 18:34] LABS: INR 1.74; PROTHROMBIN TIME 21.3 seconds (11.9-14.5)
[2024-08-23 18:35] LABS: PARTIAL THROMBOPLASTIN TIME 51.3 seconds (23.8-35.5)
[2024-08-23 18:44] LABS: ALBUMIN 2.1 g/dL (3.5-5.0); ALBUMIN/GLOBULIN RATIO 0.6 (0.8-2.0); ANION GAP 17.5 mmol/L (8-16); BILIRUBIN,TOTAL 1.9 mg/dL (0.2-1.2); BILIRUBIN,URINE NEGATIVE (NEGATIVE); CALCIUM 8.4 mg/dL (8.4-10.2); CLARITY,URINE CLEAR (CLEAR); COLOR,URINE YELLOW (YELLOW); CREATININE, SERUM 1.6 mg/dL (0.72-1.25); GLUCOSE, URINE NEGATIVE (NEGATIVE); KETONES,URINE NEGATIVE (NEGATIVE); LEUKOCYTE ESTERASE ,URINE NEGATIVE (NEGATIVE); NITRITE,URINE NEGATIVE (NEGATIVE); PH,URINE 5.5 (5 - 7); POTASSIUM 3.5 mmol/L (3.5-5.1); PROTEIN,URINE DIPSTICK NEGATIVE (NEGATIVE); TOTAL PROTEIN 5.7 g/dL (6.5-8.1); URINE UROBILINOGEN 0.2 mg/dL (0.2 - 1)
[2024-08-23 18:48] LABS: RBC,URINE 0-5 /HPF (0-5); WBC,URINE (MAN) 0-5 /HPF (0-5)
[2024-08-23 18:53] LABS: TROPONIN I 0.33 ng/mL (0-0.300)
[2024-08-23] MEDS ORDERED: ONDANSETRON HCL INJ 2MG/ML 2ML 2 MG/ML VIAL IV PRN (19:15)
[2024-08-23] MEDS: ACETAMINOPHEN 325 MG TAB PO STA (19:32)
[2024-08-23] MEDS: SODIUM CHLORIDE 0.9% 1000ML 1,000 ML IV STA (19:32)
[2024-08-23] MEDS ORDERED: ACETAMINOPHEN 325 MG TAB ONE (19:42)
[2024-08-23 19:45] LABS: BAND NEUTROPHILS % (MANUAL) 1 %; LYMPHOCYTES % (MANUAL) 4 % (19-48); MONOCYTES % (MANUAL) 6 % (3.4-9.0); NEUTROPHILS % (MANUAL) 89 % (40-74); RBC MORPHOLOGY COMMENT ABNORMAL
[2024-08-23 19:46] LABS: ANISOCYTOSIS MODERATE; HYPOCHROMASIA MODERATE; MICROCYTOSIS MODE; PLATELET ESTIMATE ADEQUATE; PLATELET MORPHOLOGY COMMENT NORMAL
[2024-08-23 23:30] VITALS: PULSE 81; RESP 20
[2024-08-24] VITALS (10 sets, daily range): BP systolic 102–153; BP diastolic 41–83; PULSE 80–104; RESP 16–20; TEMP 97.5–99.3; O2SAT 96–100
[2024-08-24 00:11] LABS: CORONAVIRUS COVID-19 AG NEGATIVE (NEGATIVE); INFLUENZA A AG NEGATIVE (NEGATIVE); INFLUENZA B AG NEGATIVE (NEGATIVE)
[2024-08-24 00:22] LABS: TROPONIN I 0.299 ng/mL (0-0.300)
[2024-08-24] MEDS ORDERED: FOLIC ACID0.4 MG PO (02:47)
[2024-08-24] MEDS ORDERED: PREDNISONE5 MG PO (02:47)
[2024-08-24] MEDS ORDERED: PLAQUENIL200 MG PO (02:47)
[2024-08-24 07:19] LABS: BASOPHILS % 0.1 % (0.0-1.0); EOSINOPHILS % 0.1 % (0.0-6.0); HEMATOCRIT 25.4 % (38.2-49.6); LYMPHOCYTES # (AUTO) 0.8 (1.0-3.2); LYMPHOCYTES % 4.9 % (18.0-39.1); MEAN CORPUSCULAR HEMOGLOBIN 29.3 pg (28-32); MEAN CORPUSCULAR HGB CONC 31.5 g/dL (31-35); MONOCYTES # (AUTO) 1.2 (0.2-0.8); NEUTROPHILS # (AUTO) 14.5 (2.1-6.9); NEUTROPHILS % 87.3 % (38.7-80.0); PLATELET COUNT 259 x10e3/uL (140-360); RED BLOOD COUNT 2.73 x10e6/uL (4.3-5.7); RED CELL DISTRIBUTION WIDTH 14.2 % (11.7-14.4); WHITE BLOOD COUNT 16.61 x10e3/uL (4.8-10.8)
[2024-08-24 07:58] LABS: ALBUMIN 1.9 g/dL (3.5-5.0); ALBUMIN/GLOBULIN RATIO 0.6 (0.8-2.0); ALKALINE PHOSPHATASE 60 IU/L (40-150); ANION GAP 17.1 mmol/L (8-16); BILIRUBIN,TOTAL 1.6 mg/dL (0.2-1.2); BLOOD UREA NITROGEN 25 mg/dL (7-26); BUN/CREATININE RATIO 16 (6-25); CALCIUM 8.2 mg/dL (8.4-10.2); CARBON DIOXIDE 22 mmol/L (22-29); CHLORIDE 102 mmol/L (98-107); CREATININE, SERUM 1.58 mg/dL (0.72-1.25); EST GLOMERULAR FILTRATION RATE 46 ML/MIN (>=60); GLUCOSE 146 mg/dL (74-118); SODIUM 138 mmol/L (136-145); TOTAL PROTEIN 5.2 g/dL (6.5-8.1)
[2024-08-24 08:01] LABS: ALANINE AMINOTRANSFERASE < 6 IU/L (0-55); POTASSIUM 3.1 mmol/L (3.5-5.1)
[2024-08-24 08:04] LABS: TROPONIN I 0.232 ng/mL (0-0.300)
[2024-08-24] MEDS: POTASSIUM CHLORIDE 20 MEQ TAB CR PO STA (09:48)
[2024-08-24] MEDS: LOPERAMIDE HCL 2 MG CAP PO PRN (15:03)
[2024-08-24] MEDS: MAGNESIUM SULFATE 2GM/50ML 50 ML IV ONE (15:03)
[2024-08-24] MEDS: APIXABAN 5 MG TABLET PO SCH (17:10)
[2024-08-24] MEDS: METOPROLOL SUCCINATE 25 MG TAB XL PO SCH (17:11)
[2024-08-24] MEDS: HYDRALAZINE HCL 10 MG TAB PO SCH (17:11)
[2024-08-24] MEDS: ATORVASTATIN 40 MG TAB PO SCH (21:00)
[2024-08-24 22:59] LABS: TROPONIN I 0.218 ng/mL (0-0.300)
[2024-08-24] MEDS ORDERED: DEXTROSE 50% SYRINGE 50 ML IV PRN (23:00)
[2024-08-25 00:23] VITALS: BP 116/67; PULSE 78; RESP 17; TEMP 98.1; O2SAT 98
[2024-08-25 04:08] VITALS: BP 111/86; PULSE 104; RESP 17; TEMP 98.2; O2SAT 94
[2024-08-25 06:17] LABS: ANION GAP 15.2 mmol/L (8-16); CALCIUM 8.3 mg/dL (8.4-10.2); CREATININE, SERUM 1.68 mg/dL (0.72-1.25)
[2024-08-25 06:24] LABS: POTASSIUM 3.2 mmol/L (3.5-5.1)
[2024-08-25 07:27] LABS: BASOPHILS % 0.1 % (0.0-1.0); EOSINOPHILS % 0.1 % (0.0-6.0); HEMATOCRIT 23.5 % (38.2-49.6); LYMPHOCYTES # (AUTO) 0.9 (1.0-3.2); LYMPHOCYTES % 5.6 % (18.0-39.1); MEAN CORPUSCULAR HEMOGLOBIN 28.7 pg (28-32); MEAN CORPUSCULAR HGB CONC 31.1 g/dL (31-35); MEAN CORPUSCULAR VOLUME 92.5 fL (81-99); MONOCYTES % 6.7 % (4.4-11.3); NEUTROPHILS # (AUTO) 13.5 (2.1-6.9); NEUTROPHILS % 86.8 % (38.7-80.0); PLATELET COUNT 245 x10e3/uL (140-360); RED BLOOD COUNT 2.54 x10e6/uL (4.3-5.7); RED CELL DISTRIBUTION WIDTH 14.3 % (11.7-14.4)
[2024-08-25] MEDS: INSULIN LISPRO 100 UNIT/1 ML 3ML VIAL SQ SCH (07:30)
[2024-08-25 07:31] LABS: HEMOGLOBIN 7.3 g/dL (14.0-18.0)
[2024-08-25] MEDS: AMLODIPINE BESYLATE 10 MG TAB PO SCH (08:50)
[2024-08-25 08:53] VITALS: BP 101/57; PULSE 80; RESP 20; TEMP 98.1; O2SAT 96
[2024-08-25] MEDS ORDERED: FERROUS SULFATE 325 MG TAB PO SCH (09:00)
[2024-08-25] MEDS: FERROUS SULFATE 325 MG TAB PO SCH (09:12)
[2024-08-25] MEDS: FUROSEMIDE 40 MG TAB PO SCH (09:12)
[2024-08-25] MEDS: ASPIRIN 81 MG ENTERIC COATED PO SCH (09:12)
[2024-08-25] MEDS: POTASSIUM CHLORIDE 20 MEQ TAB CR PO STA (09:13)
[2024-08-25] MEDS: DIGOXIN 0.125 MG TAB PO SCH (09:13)
[2024-08-25 12:27] VITALS: BP 102/62; PULSE 80; RESP 20; TEMP 97.5; O2SAT 95
[2024-08-25] MEDS: HYDROXYCHLOROQUINE SULFATE 200 MG TAB PO SCH (14:19)
[2024-08-25] MEDS ORDERED: ARTIFICIAL TEARS (OPTH) 15 ML BTL OP PRN (17:00)
[2024-08-25 17:05] VITALS: BP 108/48; PULSE 74; RESP 20; TEMP 98.1; O2SAT 96
[2024-08-25 20:00] VITALS: BP_SYST 105; BP_SYST 135; BP_DIAS 59; BP_DIAS 85; PULSE 84; PULSE 90; RESP 18; TEMP 97; TEMP 97.3; O2SAT 100
[2024-08-26] VITALS (8 sets, daily range): BP systolic 103–123; BP diastolic 46–72; PULSE 71–103; RESP 15–20; TEMP 97.5–99; O2SAT 94–99
[2024-08-26 05:41] LABS: BASOPHILS % 0.1 % (0.0-1.0); EOSINOPHILS % 0.1 % (0.0-6.0); HEMATOCRIT 22.3 % (38.2-49.6); LYMPHOCYTES # (AUTO) 0.9 (1.0-3.2); LYMPHOCYTES % 5.6 % (18.0-39.1); MEAN CORPUSCULAR HEMOGLOBIN 29.2 pg (28-32); MEAN CORPUSCULAR HGB CONC 31.4 g/dL (31-35); MEAN CORPUSCULAR VOLUME 92.9 fL (81-99); MONOCYTES # (AUTO) 1.4 (0.2-0.8); MONOCYTES % 8.6 % (4.4-11.3); NEUTROPHILS # (AUTO) 13.3 (2.1-6.9); NEUTROPHILS % 84.7 % (38.7-80.0); PLATELET COUNT 212 x10e3/uL (140-360); RED CELL DISTRIBUTION WIDTH 14.6 % (11.7-14.4); WHITE BLOOD COUNT 15.75 x10e3/uL (4.8-10.8)
[2024-08-26 06:00] LABS: ANION GAP 16.6 mmol/L (8-16); CALCIUM 8.3 mg/dL (8.4-10.2); CREATININE, SERUM 2.16 mg/dL (0.72-1.25); POTASSIUM 3.6 mmol/L (3.5-5.1)
[2024-08-26 06:25] LABS: FERRITIN 737.13 ng/mL (21.81-274.66)
[2024-08-26] MEDS: PREDNISONE 1 MG PO SCH (09:00)
[2024-08-26] MEDS: NON-FORMULARY MEDICATION (Folic Acid* 0.4 MG) PO SCH (09:00)
[2024-08-26] MEDS: SODIUM CHLORIDE 0.9% 250ML 250 ML ONE (09:16)
[2024-08-26] MEDS: BALSAM PERU/CASTOR OIL 60 GM OINT...G. TP SCH (17:45)
[2024-08-27] VITALS (15 sets, daily range): BP systolic 99–130; BP diastolic 51–72; PULSE 68–103; RESP 18–22; TEMP 97.5–99.2; O2SAT 92–100
[2024-08-27 06:23] LABS: BASOPHILS % 0.1 % (0.0-1.0); EOSINOPHILS % 0.1 % (0.0-6.0); LYMPHOCYTES % 5.5 % (18.0-39.1); MEAN CORPUSCULAR HGB CONC 31.2 g/dL (31-35); MEAN CORPUSCULAR VOLUME 92.9 fL (81-99); MONOCYTES # (AUTO) 1.1 (0.2-0.8); MONOCYTES % 6.4 % (4.4-11.3); NEUTROPHILS % 87.1 % (38.7-80.0); PLATELET COUNT 216 x10e3/uL (140-360); RED BLOOD COUNT 2.38 x10e6/uL (4.3-5.7); RED CELL DISTRIBUTION WIDTH 14.8 % (11.7-14.4); WHITE BLOOD COUNT 17.26 x10e3/uL (4.8-10.8)
[2024-08-27 06:27] LABS: HEMATOCRIT 22.1 % (38.2-49.6); HEMOGLOBIN 6.9 g/dL (14.0-18.0)
[2024-08-27 06:49] LABS: ANION GAP 17.8 mmol/L (8-16); CALCIUM 8.4 mg/dL (8.4-10.2); CREATININE, SERUM 2.28 mg/dL (0.72-1.25); POTASSIUM 3.8 mmol/L (3.5-5.1)
[2024-08-27] MEDS: SODIUM FERRIC GLUCONATE COMPLX 125 MG in SODIUM CHLORIDE 0.9% 100 ML IV SCH (09:23)
[2024-08-27] MEDS: SODIUM CHLORIDE 0.9% 250ML 250 ML IV ONE (13:39)
[2024-08-28] VITALS (8 sets, daily range): BP systolic 93–109; BP diastolic 48–80; PULSE 75–85; RESP 17–20; TEMP 97–98.5; O2SAT 95–100
[2024-08-28 06:08] LABS: BASOPHILS % 0.1 % (0.0-1.0); EOSINOPHILS # (AUTO) 0.1 (0.0-0.4); EOSINOPHILS % 0.6 % (0.0-6.0); HEMATOCRIT 24.6 % (38.2-49.6); LYMPHOCYTES # (AUTO) 0.8 (1.0-3.2); LYMPHOCYTES % 5.7 % (18.0-39.1); MEAN CORPUSCULAR HEMOGLOBIN 28.8 pg (28-32); MEAN CORPUSCULAR HGB CONC 31.3 g/dL (31-35); MEAN CORPUSCULAR VOLUME 92.1 fL (81-99); MONOCYTES # (AUTO) 0.9 (0.2-0.8); MONOCYTES % 6.2 % (4.4-11.3); NEUTROPHILS # (AUTO) 12.1 (2.1-6.9); NEUTROPHILS % 86.5 % (38.7-80.0); PLATELET COUNT 211 x10e3/uL (140-360); RED BLOOD COUNT 2.67 x10e6/uL (4.3-5.7); RED CELL DISTRIBUTION WIDTH 14.4 % (11.7-14.4); WHITE BLOOD COUNT 13.93 x10e3/uL (4.8-10.8)
[2024-08-28 06:09] LABS: HEMOGLOBIN 7.7 g/dL (14.0-18.0)
[2024-08-28 06:29] LABS: ANION GAP 16.6 mmol/L (8-16); CALCIUM 8.5 mg/dL (8.4-10.2); POTASSIUM 3.6 mmol/L (3.5-5.1)
[2024-08-28] MEDS: PANTOPRAZOLE SOD 40 MG TABEC PO SCH (12:11)
[2024-08-28] MEDS: Morphine 2mg Syringe 2 MG/ML SYR IV PRN (12:43)
[2024-08-29] VITALS (8 sets, daily range): BP systolic 105–144; BP diastolic 56–71; PULSE 81–90; RESP 16–20; TEMP 97.4–99; O2SAT 96–100
[2024-08-29 05:39] LABS: BASOPHILS % 0.2 % (0.0-1.0); EOSINOPHILS # (AUTO) 0.1 (0.0-0.4); EOSINOPHILS % 0.5 % (0.0-6.0); HEMATOCRIT 24.6 % (38.2-49.6); LYMPHOCYTES # (AUTO) 0.6 (1.0-3.2); LYMPHOCYTES % 4.6 % (18.0-39.1); MEAN CORPUSCULAR HEMOGLOBIN 29.2 pg (28-32); MEAN CORPUSCULAR HGB CONC 31.7 g/dL (31-35); MEAN CORPUSCULAR VOLUME 92.1 fL (81-99); MONOCYTES # (AUTO) 0.9 (0.2-0.8); MONOCYTES % 6.9 % (4.4-11.3); NEUTROPHILS # (AUTO) 10.7 (2.1-6.9); NEUTROPHILS % 86.6 % (38.7-80.0); PLATELET COUNT 215 x10e3/uL (140-360); RED BLOOD COUNT 2.67 x10e6/uL (4.3-5.7); RED CELL DISTRIBUTION WIDTH 14.5 % (11.7-14.4)
[2024-08-29 05:50] LABS: HEMOGLOBIN 7.8 g/dL (14.0-18.0)
[2024-08-29 05:58] LABS: ANION GAP 14.4 mmol/L (8-16); CALCIUM 8.3 mg/dL (8.4-10.2); CREATININE, SERUM 1.69 mg/dL (0.72-1.25)
[2024-08-29 05:59] LABS: POTASSIUM 3.4 mmol/L (3.5-5.1)
[2024-08-30] VITALS: BP 113/55; PULSE 73; RESP 18; TEMP 99.3; O2SAT 96
[2024-08-30 04:00] VITALS: BP 116/59; PULSE 78; RESP 18; TEMP 99.2
[2024-08-30 06:36] LABS: BASOPHILS % 0.2 % (0.0-1.0); EOSINOPHILS # (AUTO) 0.3 (0.0-0.4); EOSINOPHILS % 2.4 % (0.0-6.0); HEMATOCRIT 24.5 % (38.2-49.6); HEMOGLOBIN 7.7 g/dL (14.0-18.0); LYMPHOCYTES # (AUTO) 0.6 (1.0-3.2); LYMPHOCYTES % 5.1 % (18.0-39.1); MEAN CORPUSCULAR HEMOGLOBIN 29.2 pg (28-32); MEAN CORPUSCULAR HGB CONC 31.4 g/dL (31-35); MEAN CORPUSCULAR VOLUME 92.8 fL (81-99); MONOCYTES # (AUTO) 0.7 (0.2-0.8); MONOCYTES % 6.3 % (4.4-11.3); NEUTROPHILS % 84.8 % (38.7-80.0); PLATELET COUNT 224 x10e3/uL (140-360); RED BLOOD COUNT 2.64 x10e6/uL (4.3-5.7); RED CELL DISTRIBUTION WIDTH 14.6 % (11.7-14.4); WHITE BLOOD COUNT 11.79 x10e3/uL (4.8-10.8)
[2024-08-30 07:08] LABS: ALBUMIN 1.4 g/dL (3.5-5.0); ALBUMIN/GLOBULIN RATIO 0.4 (0.8-2.0); ANION GAP 13.6 mmol/L (8-16); CREATININE, SERUM 1.56 mg/dL (0.72-1.25); POTASSIUM 3.6 mmol/L (3.5-5.1); TOTAL PROTEIN 4.7 g/dL (6.5-8.1)
[2024-08-30 08:12] VITALS: BP 122/58; PULSE 72; RESP 18; TEMP 99.2
[2024-08-30 14:50] LABS: ANION GAP 12.7 mmol/L (8-16); CALCIUM 8.8 mg/dL (8.4-10.2); CREATININE, SERUM 1.53 mg/dL (0.72-1.25); POTASSIUM 3.7 mmol/L (3.5-5.1)
[2024-08-30] MEDS: PREDNISONE 5 MG TAB PO SCH (17:05)
[2024-08-30 20:00] VITALS: BP 125/58; PULSE 64; RESP 18; TEMP 98.6; O2SAT 96
[2024-08-30 21:00] VITALS: BP 125/58; PULSE 64; RESP 18; TEMP 98.6; O2SAT 96
[2024-08-31] VITALS (9 sets, daily range): BP systolic 104–156; BP diastolic 59–112; PULSE 64–77; RESP 18–20; TEMP 98–99.2; O2SAT 90–100
[2024-08-31] MEDS: SODIUM FERRIC GLUCONATE COMPLX 125 MG in SODIUM CHLORIDE 0.9% 100 ML IV SCH (15:30)
[2024-08-31] MEDS ORDERED: CEFTRIAXONE 1 GM VIAL IM ONE (16:00)
[2024-08-31] MEDS: SODIUM CHLORIDE 0.9% 500ML 500 ML IV ONE (16:03)
[2024-08-31 16:31] LABS: BASOPHILS % 0.1 % (0.0-1.0); EOSINOPHILS % 0.1 % (0.0-6.0); HEMATOCRIT 25.2 % (38.2-49.6); HEMOGLOBIN 7.8 g/dL (14.0-18.0); LYMPHOCYTES # (AUTO) 0.5 (1.0-3.2); LYMPHOCYTES % 3.4 % (18.0-39.1); MEAN CORPUSCULAR HEMOGLOBIN 28.9 pg (28-32); MEAN CORPUSCULAR VOLUME 93.3 fL (81-99); MONOCYTES # (AUTO) 0.8 (0.2-0.8); MONOCYTES % 5.5 % (4.4-11.3); NEUTROPHILS # (AUTO) 13.3 (2.1-6.9); NEUTROPHILS % 89.8 % (38.7-80.0); PLATELET COUNT 305 x10e3/uL (140-360); RED CELL DISTRIBUTION WIDTH 14.7 % (11.7-14.4); WHITE BLOOD COUNT 14.82 x10e3/uL (4.8-10.8)
[2024-08-31 16:50] LABS: ANION GAP 14.1 mmol/L (8-16); CALCIUM 9.3 mg/dL (8.4-10.2); CREATININE, SERUM 1.62 mg/dL (0.72-1.25); POTASSIUM 4.1 mmol/L (3.5-5.1)
[2024-08-31] MEDS: SODIUM FERRIC GLUCONATE COMPLX 125 MG in SODIUM CHLORIDE 0.9% 100 ML IV ONE (17:34)
[2024-08-31 17:49] LABS: ABG PCO2 39 mmHg (35-45); ABG PO2 112 mmHg (80-105)
[2024-08-31 17:50] LABS: ABG HCO3 24 mmol/L (22-26); ABG TCO2 26
[2024-09-01] VITALS (11 sets, daily range): BP systolic 143–152; BP diastolic 62–92; PULSE 61–87; RESP 18–20; TEMP 97.9–98.6; O2SAT 95–100
[2024-09-01 08:07] LABS: ABG HCO3 24 mmol/L (22-26); ABG PCO2 39 mmHg (35-45); ABG PO2 112 mmHg (80-105); ABG TCO2 26
[2024-09-01] MEDS: FERROUS SULFATE 325 MG TAB PO SCH (09:19)
[2024-09-02] VITALS (10 sets, daily range): BP systolic 122–152; BP diastolic 56–102; PULSE 57–78; RESP 16–22; TEMP 97.5–98.8; O2SAT 95–100
[2024-09-02 05:45] LABS: BASOPHILS % 0.1 % (0.0-1.0); EOSINOPHILS # (AUTO) 0.1 (0.0-0.4); EOSINOPHILS % 1.1 % (0.0-6.0); HEMATOCRIT 26.2 % (38.2-49.6); LYMPHOCYTES # (AUTO) 0.8 (1.0-3.2); LYMPHOCYTES % 6.3 % (18.0-39.1); MEAN CORPUSCULAR HEMOGLOBIN 28.9 pg (28-32); MEAN CORPUSCULAR HGB CONC 30.5 g/dL (31-35); MEAN CORPUSCULAR VOLUME 94.6 fL (81-99); MONOCYTES # (AUTO) 0.7 (0.2-0.8); MONOCYTES % 5.4 % (4.4-11.3); NEUTROPHILS # (AUTO) 10.4 (2.1-6.9); PLATELET COUNT 332 x10e3/uL (140-360); RED BLOOD COUNT 2.77 x10e6/uL (4.3-5.7); RED CELL DISTRIBUTION WIDTH 14.9 % (11.7-14.4); WHITE BLOOD COUNT 12.03 x10e3/uL (4.8-10.8)
[2024-09-02 06:18] LABS: ALBUMIN 1.4 g/dL (3.5-5.0); ALBUMIN/GLOBULIN RATIO 0.4 (0.8-2.0); ANION GAP 14.4 mmol/L (8-16); BILIRUBIN,TOTAL 0.7 mg/dL (0.2-1.2); CALCIUM 9.8 mg/dL (8.4-10.2); CREATININE, SERUM 1.49 mg/dL (0.72-1.25); POTASSIUM 4.4 mmol/L (3.5-5.1); TOTAL PROTEIN 5.1 g/dL (6.5-8.1)
[2024-09-03] VITALS (7 sets, daily range): BP systolic 106–171; BP diastolic 59–85; PULSE 65–70; RESP 16–20; TEMP 97.7–98.5; O2SAT 95–99
[2024-09-03 06:06] LABS: BASOPHILS % 0.1 % (0.0-1.0); EOSINOPHILS # (AUTO) 0.1 (0.0-0.4); EOSINOPHILS % 0.5 % (0.0-6.0); HEMATOCRIT 27.9 % (38.2-49.6); HEMOGLOBIN 8.6 g/dL (14.0-18.0); LYMPHOCYTES # (AUTO) 0.9 (1.0-3.2); MEAN CORPUSCULAR HEMOGLOBIN 29.3 pg (28-32); MEAN CORPUSCULAR HGB CONC 30.8 g/dL (31-35); MEAN CORPUSCULAR VOLUME 94.9 fL (81-99); MONOCYTES # (AUTO) 0.6 (0.2-0.8); MONOCYTES % 4.6 % (4.4-11.3); NEUTROPHILS # (AUTO) 10.8 (2.1-6.9); NEUTROPHILS % 86.4 % (38.7-80.0); PLATELET COUNT 395 x10e3/uL (140-360); RED BLOOD COUNT 2.94 x10e6/uL (4.3-5.7); RED CELL DISTRIBUTION WIDTH 15.1 % (11.7-14.4); WHITE BLOOD COUNT 12.52 x10e3/uL (4.8-10.8)
[2024-09-03 06:35] LABS: ANION GAP 17.4 mmol/L (8-16); CALCIUM 10.3 mg/dL (8.4-10.2); CREATININE, SERUM 1.31 mg/dL (0.72-1.25); POTASSIUM 4.4 mmol/L (3.5-5.1)
[2024-09-03] MEDS ORDERED: MORPHINE 2 MG IV (13:45)
[2024-09-03] MEDS ORDERED: ONDANSETRON4 MG/2 M1 IV (13:45)
[2024-09-03] MEDS ORDERED: PREDNISONE5 MG PO (13:45)
[2024-09-03] MEDS ORDERED: FOLIC ACID PO (13:45)
[2024-09-03] MEDS ORDERED: Insulin Lispro SQ (13:45)
[2024-09-03] MEDS: Morphine 2mg Syringe 2 MG/ML SYR IV PRN (16:48)
== END 2024-09-03 17:25 | disposition hospice, inpatient (51) | DRG 871 ==
LOC: ER 16:56 → ERHOLD 19:14 → MED/SURG2 08-24 00:15
PROVIDERS: ADMIT Internal Medicine; ATTEND Internal Medicine
PROC: 3E0333Z Introduction of Anti-inflammatory into Peripheral Vein, Percutaneous Approach (ICD-10-PCS; principal; 2024-08-23)
PROC: 30233N1 Transfusion of Nonautologous Red Blood Cells into Peripheral Vein, Percutaneous Approach (ICD-10-PCS; 2024-08-27)
PROC: 4A133R1 Monitoring of Arterial Saturation, Peripheral, Percutaneous Approach (ICD-10-PCS; 2024-08-31)
DX: A41.9 Sepsis, unspecified organism (principal); G93.41 Metabolic encephalopathy; I50.23 Acute on chronic systolic (congestive) heart failure; L89.313 Pressure ulcer of right buttock, stage 3; L89.323 Pressure ulcer of left buttock, stage 3; L89.623 Pressure ulcer of left heel, stage 3; L89.893 Pressure ulcer of other site, stage 3; I21.A1 Myocardial infarction type 2; J69.0 Pneumonitis due to inhalation of food and vomit; E44.0 Moderate protein-calorie malnutrition; I13.0 Hypertensive heart and chronic kidney disease with heart failure and stage 1 through stage 4 chronic kidney disease, or unspecified chronic kidney disease; I48.20 Chronic atrial fibrillation, unspecified; N17.9 Acute kidney failure, unspecified; R62.7 Adult failure to thrive; Z51.5 Encounter for palliative care; Z66 Do not resuscitate; Z11.52 Encounter for screening for COVID-19; E86.0 Dehydration; E11.22 Type 2 diabetes mellitus with diabetic chronic kidney disease; E11.65 Type 2 diabetes mellitus with hyperglycemia; N18.30 Chronic kidney disease, stage 3 unspecified; D63.1 Anemia in chronic kidney disease; E78.49 Other hyperlipidemia; R53.81 Other malaise; D50.9 Iron deficiency anemia, unspecified; E87.6 Hypokalemia; E83.42 Hypomagnesemia; E66.9 Obesity, unspecified; Z68.32 Body mass index [BMI] 32.0-32.9, adult; I25.10 Atherosclerotic heart disease of native coronary artery without angina pectoris; M19.90 Unspecified osteoarthritis, unspecified site; G89.4 Chronic pain syndrome; Z90.49 Acquired absence of other specified parts of digestive tract; Z79.82 Long term (current) use of aspirin; Z79.4 Long term (current) use of insulin; Z79.01 Long term (current) use of anticoagulants; Z79.52 Long term (current) use of systemic steroids
CPT/HCPCS: 36415; 36600; 70450; 71045; 80048; 80053; 81001; 82550; 82728; 82805; 82948; 83540; 83605; 83735; 83880; 84466; 84484; 85025; 85610; 85730; 86850; 86900; 86920; 87040; 87086; 93005; 93306; 94799; 96372; 99252; 99284; J0696; J2270; J2470; J2543; J2916; J3475; J7030; J7040; J7050; J7512; P9016